=== PATIENT | male | born 1945 | race Caucasian/White ===

== ENCOUNTER 2024-04-22 16:13 | Emergency (ER) | payer OTHER ==
[2024-04-22 16:27] VITALS: BP 138/79; PULSE 83; RESP 16; TEMP 98.8; BMI 27.3
[2024-04-22] MEDS: ACETAMINOPHEN 650 MG/20.3 ML ORAL SOLUTION (CUPS) PO ONE (18:44)
== END 2024-04-22 19:37 | disposition home or self-care (01) ==
LOC: JER 16:13
DX: M71.21 Synovial cyst of popliteal space [Baker], right knee (principal); M79.89 Other specified soft tissue disorders
CPT/HCPCS: 93971-TC; 99284-25